=== PATIENT | male | born 2000 | race Caucasian/White ===

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

== ENCOUNTER 2023-10-04 07:27 | Emergency (ER) | payer BC, SELFPAY ==
[2023-10-04 07:28] VITALS: BP 130/87; PULSE 83; RESP 16; TEMP 36.8; O2SAT 98
--- NOTE | 2023-10-04 07:38 | ED.NAVMDI ---
HPI - Nausea/Vomiting/Diarrhea General Chief complaint: Nausea/Vomiting/Diarrhea Stated complaint: Nausea/vomiting Source: patient and family Mode of arrival: ambulatory Limitations: no limitations History of Present Illness HPI Narrative: this is a 22 year male that presents with nausea vomiting dry heaves started earlier this morning with no abdominal no constipation no fever chills no chest pain or shortness of breath. MD elicited complaint: nausea and vomiting Onset (ago): hour(s) Description of vomiting: watery Associated nausea: Yes Associated abdominal pain: No Related Data Home Medications Medication Instructions Recorded Confirmed No Home Medications 12/20/19 12/20/19 Allergies Allergy/AdvReac Type Severity Reaction Status Date / Time No Known Allergies Allergy Verified 12/20/19 16:32 Review of Systems Review of Systems: All systems reviewed & are unremarkable except as noted in HPI and below PMFSH Past Medical History Medical History Patient denies medical problems Exam Const: General: healthy appearing Nutritional Appearance: well nourished Orientation/consciousness: patient oriented x3 Limitations: no limitations Neck: Neck: normal visual inspection, no lymphadenopathy and no meningeal signs Chest: Chest palpation & inspection: normal inspection of the chest Resp: Effort & Inspection: normal respiratory effort Auscultation: clear to auscultation bilaterally Cardio: Rate: regular rate Rhythm: regular rhythm GI: GI Palp: Yes Soft to palpation Auscultation: normal bowel sounds : General: Yes bladder normal to palpation Skin: General skin exam: normal color Rashes: no rashes Neuro: General: patient oriented x3 and moves all extremities Course Course Emergency Course: COVID influenza RSV harm reviewed and negative, patient received a dose of Zofran after reassessment patient symptoms have improved. Vital Signs Vital signs: Vital Signs Temperature 36.8 C 10/04/23 07:28 Pulse Rate 83 10/04/23 07:28 Respiratory Rate 16 10/04/23 07:28 Blood Pressure 130/87 10/04/23 07:28 Pulse Oximetry 98 10/04/23 07:28 Oxygen Delivery Room Air 10/04/23 07:28 Temperature 36.8 C 10/04/23 07:28 Pulse Rate 83 10/04/23 07:28 Respiratory Rate 16 10/04/23 07:28 Blood Pressure 130/87 10/04/23 07:28 Pulse Oximetry 98 10/04/23 07:28 Oxygen Delivery Room Air 10/04/23 07:28 Critical Care Time Critical Care Time Critical Care Time: No Discharge Plan Discharge Clinical Impression: Gastroenteritis Patient Disposition: Home, Self-Care Condition: Stable Instructions: Antibiotic Form, Acute Nausea and Vomiting (ED), Gastroenteritis (ED) Prescriptions: No Action No Home Medications Follow-up/Referrals: UNKNOWN,DOCTOR [Primary Care Provider] -
[2023-10-04] MEDS: ONDANSETRON HCL ODT 4 MG TABLET PO (07:44)
[2023-10-04 08:12] VITALS: BP 132/82; PULSE 81; RESP 18; TEMP 37; O2SAT 99
[2023-10-04 08:13] LABS: SARS-CoV-2 RNA PCR Negative (Negative)
[2023-10-04 08:16] LABS: Influenza A QL RT-PCR Negative (Negative); Influenza B QL RT-PCR Negative (Negative); RSV RNA, RT-PCR Negative (Negative)
== END 2023-10-04 08:34 | disposition home or self-care (01) ==
PROVIDERS: Emergency Provider Emergency Medicine
DX: K52.9 Noninfective gastroenteritis and colitis, unspecified (principal); Z20.822 Contact with and (suspected) exposure to COVID-19
CPT/HCPCS: 87637; 99283; A9270